=== PATIENT | female | born 1970 ===

== ENCOUNTER 2022-03-10 16:36 | Emergency (ER) | payer SELFPAY ==
[2022-03-10] MEDS ORDERED: SODIUM CHLORIDE 0.9% 1000 ML IV SOLN IV ONE (16:57)
[2022-03-10] MEDS ORDERED: ONDANSETRON 4 MG/2 ML INJ IV ONE (17:12)
[2022-03-10] MEDS ORDERED: ACETAMINOPHEN 500 MG TAB PO ONE (17:12)
[2022-03-10] MEDS ORDERED: levETIRAcetam 1000 MG/NS 0.75% 1,000 MG/100 ML BAG IV ONE (17:13)
--- NOTE | 2022-03-10 17:14 | Emergency Department Report ---
ED General Adult HPI - General Chief complaint: Weakness Stated complaint: VOMITING/CHILLS PUI?: Yes Time Seen by Provider: 03/10/22 16:58 Source: patient, family, RN notes reviewed Mode of arrival: Ambulatory Limitations: No Limitations, Physical Limitation - History of Present Illness Initial comments: The patient was evaluated in the emergency department for symptoms described in the history of present illness. He/she was evaluated in the context of the global COVID-19 pandemic, which necessitated consideration that the patient might be at risk for infection with the virus that causes COVID-19. Institutional protocols and algorithms that pertain to the evaluation of patients at risk for COVID-19 are in a state of rapid change based on information released by regulatory bodies including the CDC and federal and stat e organizations. These policies and algorithms were followed during the patient's care in the emergency department. Please note that these policies, procedures and recommendations changed on a rapid basis. 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 Please note that this patient is able to communicate with me in Latvian. In addition, this provider is conversant in Portuguese. This patient is a 51-year-old female with a history of hypothyroidism, seizures, currently takes Keppra, who received her COVID-19 vaccination, but not booster, presenting to the ER with a complaint of fever, chills, nausea, vomiting, di arrhea, malaise, weakness. She reportedly lost consciousness on Tuesday, and fell onto her left hand side. She thinks that she hit her head, but she is not certain. She did not seek medical attention at that time. She also endorses dysuria. No recent antibiotic use. -: Gradual, days(s) Location: head, back, abdomen, left Consistency: constant Improves with: rest Worsens with: movement - Related Data Allergies Allergy/AdvReac Type Severity Reaction Status Date / Time No Known Allergies Allergy Verified 03/10/22 16:49 ED Review of Systems ROS: Stated complaint: VOMITING/CHILLS Other details as noted in HPI Constitutional: fever, malaise, weakness ENT: denies: congestion Respiratory: denies: cough Cardiovascular: denies: chest pain Gastrointestinal: abdominal pain, nausea, vomiting, diarrhea Genitourinary: dysuria Musculoskeletal: back pain Neurological: headache, weakness ED Past Medical Hx - Past Medical History Previous Medical History?: No - Surgical History Past Surgical History?: No ED Physical Exam - General Limitations: Physical Limitation General appearance: alert, anxious, in distress - Head Head exam: Present: atraumatic, normocephalic - Eye Eye exam: Present: normal appearance, EOMI. Absent: nystagmus - ENT ENT exam: Present: normal orophraynx, mucous membranes dry, normal external ear exam - Neck Neck exam: Present: normal inspection, full ROM. Absent: tenderness, meningismus - Respiratory Respiratory exam: Present: other (Pulmonary auscultation not performed secondary to lack of disposable stethoscope). Absent: stridor - Cardiovascular Cardiovascular Exam: Present: normal rhythm, tachycardia, other (Tachycardic normal rhythm seen on monitoring manager. Auscultation not performed secondary to lack of disposable stethoscope) - GI/Abdominal GI/Abdominal exam: Present: soft, tenderness, other (There is left flank tenderness.). Absent: distended, guarding, rebound, rigid, pulsatile mass - Extremities Exam Extremities exam: Present: normal inspection, full ROM, other (2+ pulses noted in the bilateral upper and lower extremities. There is no palpable cord. negative Homans sign. Muscular compartments are soft. The pelvis is stable.). Absent: pedal edema, calf tenderness - Back Exam Back exam: Present: normal inspection, CVA tenderness (L). Absent: tenderness, CVA tenderness (R), paraspinal tenderness - Neurological Exam Neurological exam: Present: alert, other (There is no facial droop. The tongue is midline. EOMI. 5 out of 5 strength in 4 extremities. Sensation is intact to light touch in 4 extremities) - Psychiatric Psychiatric exam: Present: anxious - Skin Skin exam: Present: warm, dry, intact, normal color. Absent: rash ED Course Vital Signs 03/10/22 03/10/22 03/10/22 16:50 17:09 17:15 Temperature 102.7 F H Pulse Rate 140 H Respiratory 16 Rate Blood Pressure 114/61 Blood Pressure 100/48 [Left] O2 Sat by Pulse 95 99 97 Oximetry 03/10/22 03/10/22 03/10/22 17:31 17:45 17:57 Temperature 103.3 F H Pulse Rate 135 H 132 H 126 H Respiratory 31 H 35 H 26 H Rate Blood Pressure 104/60 104/60 92/58 Blood Pressure 92/58 [Left] O2 Sat by Pulse 97 95 97 Oximetry 03/10/22 03/10/22 03/10/22 18:01 18:13 18:15 Temperature 103.3 F H Pulse Rate 127 H 126 H 124 H Respiratory 30 H 28 H 29 H Rate Blood Pressure 99/55 92/58 Blood Pressure 92/58 [Left] O2 Sat by Pulse 96 97 96 Oximetry 03/10/22 03/10/22 03/10/22 18:31 18:45 19:01 Temperature Pulse Rate 124 H 124 H 120 H Respiratory 28 H 28 H 26 H Rate Blood Pressure 91/55 91/55 82/61 Blood Pressure [Left] O2 Sat by Pulse 97 97 97 Oximetry 03/10/22 03/10/22 19:15 22:19 Temperature Pulse Rate 122 H Respiratory 28 H Rate Blood Pressure 91/55 Blood Pressure [Left] O2 Sat by Pulse 96 98 Oximetry - Reevaluation(s) Reevaluation #1: 03/10/22 18:01 Differential diagnosis, including not limited to: Pneumonia, UTI, pyelonephritis, orthostasis, vagal event, dehydration, COVID-19, electrolyte derangement, closed head injury Assessment and plan: 51-year-old female, presenting with evidence of systemic inflammatory response syndrome, manifested by fever, tachycardia, dry mucous membranes, very suspicious for pyelonephritis, with probable dehydration, orthostasis. Place patient on isolation, start IV fluids, pain medication, Tylenol, EKG does not show STEMI, chest x-ray shows no pneumonia or pneumothorax, patient has left flank and left CVA tenderness in the context of infectious symptoms, as well as blunt trauma which occurred few days ago. Obtain noncontrast CT scan of the brain, CT scan of the abdomen pelvis, start ce ftriaxone, and reassess. I anticipate admitting this patient to the medical service for systemic inflammatory response syndrome/sepsis, likely secondary to pyelonephritis Reevaluation #2: 03/10/22 18:36 Patient has elevated lactic acid at 5, also metabolic acidosis, transaminitis, hypomagnesemia, and hypokalemia. Patient also has mild renal insufficiency. Patient meets criteria for admission hospitalization secondary to the aforementioned, in conjunction with systemic inflammatory response syndrome/sepsis picture. Currently awaiting results of CT scan brain, CT scan abdomen pelvis. Reevaluation #3: 03/10/22 18:42 Discussed laboratory findings with patient with her permission. She is agreeable to admission hospitalization. Heart rate 125 bpm. Blood pressure 95 systolic. Completing liter 1. Additional IV fluids ordered. TSH greater than 35. Free T4 ordered. Cover with hydrocortisone, and Synthroid. Additional IV fluids ordered. 03/10/22 20:23 CT scan brain shows no bleed. There is no facial bone tenderness. CT scan abdomen pelvis demonstrates left-sided obstructive renal stone, with hydronephrosis. There is no right upper quadrant tenderness. 03/10/22 20:48 This emergency room/hospital does not have neurology available for ER consultation. I did reach out to vascular surgery, and I discussed the patient' s history, physical, laboratory studies and imaging studies and clinical impression with vascular surgery/interventional radiology on-call, Dr. Garcia He recommends transfer given lack of urologic subspecialty services. I agree with this recommendation. Using travel registered nurse pacu, [phone], I extensive ly discussed with patient nature of her findings and diagnosis. Blood pressure is improved, 96/60 mmHg, hold off on vasopressors at this time. However, she does provide verbal informed consent for sterile central line placement, should blood pressure worsen. We will reach out to [facility] [place] to see about arranging transfer for definitive services not available at this facility. Using the aforementioned travel registered nurse pacu, discussed risks, benefits, potential side effects of sterile central line placement Reevaluation #4: 03/10/22 21:30 Blood pressure in the 80s. Decision made to go ahead with sterile central line placement. Risks, benefits alternatives discussed with patient using travel registered nurse pacu, and she provides consent for sterile central line placement. Sterile central line is placed, please see procedure note. Discussed the patient's history, physical, laboratory studies imaging studies and clinical impression with urology automobile service station mechanic for [facility] Dr Santos She advises that it is reasonable to have interventional radiology intervene on this patient, without urologic backup. She further advises that she cannot accept the transfer Have rediscussed with interventional radiology, Dr. Garcia. He recommends that we attempt to transfer the patient to an alternative facility. We will therefore discussed with [facility] 03/10/22 21:40 Patient now in respiratory distress. Has crackles and rales bilaterally. Chest x-ray with infiltrates/pulmonary edema. No pneumothorax appreciated. Discontinue additional IV fluids. Start high flow high humidity nasal cannula. Add on azithromycin. Hold off on nitrates and diuretics at this time, provide supportive care and positive pressure ventilation through high flow high humidity nasal cannula [facility] advises that the entire medical system is at capacity, and not able to accept any transfers. Have reached out to [facility], they advised that they are at capacity, and do not have ICU beds, and cannot accommodate the transfer. Awaiting callback from [facility] 03/10/22 21:45 [facility] advises that their system is only accepting trauma and bueno, and cannot assist in accepting this transfer will reach out to [facility] Heart rate 122 bpm, blood pressure 100/60 mmHg 03/10/22 22:42 Have discussed the patient's history, physical, laboratory studies and imaging studies and clinical impression with urology on-call for [facility], Dr. Carpenter. She advises that she can consult and follow this patient, but she cannot admit this patient. Have discussed the patient's history, physical, laboratory studies and imaging studies and clinical impression with critical care at [facility], Dr. Arreguin He advises that if they have critical care beds, they can accept as an ICU transfer. Currently awaiting callback from [facility] to confirm presence of bed availability. 03/10/22 22:50 Dr. Arreguin to accept to ICU at [facility]. This patient has an emergent medical condition which cannot be definitively managed at this hospital, as we do not have urology available for consultation. Patient prote cting airway and blood pressure is adequate at this time for transfer. I did advise the patient using the travel registered nurse pacu during her initial conversation that she would likely require transfer for services not available at this facility. - Central Line Placement Right IJ Consent Obtained: verbal consent, emergent situation Time Out Performed: Yes Patient Placed on Monitor/Pulse Ox: Yes MD Prep: mask, gown, gloves Central Line Prep: Povidone-Iodine 1%, Chlorhexidine scrub Local Anesthesia Used: Lidocaine 1% Amount of Anesthesia Used (mls): 8 Ultrasound Used for Placement: Yes Central Line Lumen Inserted: triple Reason for Insertion: High Alert Medication Bloods Obtained for Lab: No Central Line Position: all ports aspirated, flus, sutured in place with 2-0 Dressing Applied: Tegaderm Post Procedure X-Ray: tip of catheter in good p Patient Tolerated Procedure: well Complications: none Additional Comments: Patient prepped and draped in typical maximal sterile fashion. Using ultrasound guidance, right-sided internal jugular vein is cannulated with an 18-gauge needle, with 3 inch plastic catheter, guidewire, 0.032 x 60 cm, J-tip with a 3 mm radius is then inserted into the guiding catheter, and appropriate luminal placement is confirmed with real-time [id number] ultrasound guidance. A stab incision is made with an 11-gauge blade, and then incision is dilated. The 7 Kitt[place] triple-lumen catheter has each of the 3 ports flushed with sterile saline in advance of placement. Then, a 7 Kitt[place] triple-lumen catheter is i nserted over the guidewire, and sutured to the skin. Real-time ultrasound guidance confirms appropriate luminal placement. Ports are aspirated easily, and flushed easily. Blue Biopatch is then affixed to the skin, and Tegaderm is applied to the skin. This patient tolerated the procedure well, and without obvious complication. Blood loss estimated at less than 50 cc. ED Medical Decision Making - Lab Data Result diagrams: 03/10/22 17:32 03/10/22 17:32 Vital Signs 03/10/22 03/10/22 03/10/22 16:50 17:09 17:15 Temperature 102.7 F H Pulse Rate 140 H Respiratory 16 Rate Blood Pressure 114/61 Blood Pressure 100/48 [Left] O2 Sat by Pulse 95 99 97 Oximetry 03/10/22 17:31 Temperature Pulse Rate 135 H Respiratory 31 H Rate Blood Pressure 104/60 Blood Pressure [Left] O2 Sat by Pulse 97 Oximetry Lab Results 03/10/22 Range/Units Unknown Urine Color Niecy (Yellow) Urine Turbidity Cloudy (Clear) Urine pH 6.0 (5.0-7.0) Ur Specific [place] 1.015 (1.003-1.030) Urine Protein 100 mg/dl (Negative) mg/dL Urine Glucose (UA) Neg (Negative) mg/dL Urine Ketones Neg (Negative) mg/dL Urine Blood Lg (Negative) Urine Nitrite Pos (Negative) Urine Bilirubin Neg (Negative) Urine Urobilinogen < 2.0 (<2.0) mg/dL Ur Leukocyte Esterase Lg (Negative) Urine WBC (Auto) > 182.0 H (0.0-6.0) /HPF Urine RBC (Auto) 53.0 (0.0-6.0) /HPF U Epithel Cells (Auto) 19.0 H (0-13.0) /HPF Urine Bacteria (Auto) 1+ (Negative) /HPF Lab Results 03/10/22 03/10/22 03/10/22 Range/Units 17:32 17:32 17:32 RBC 3.86 (3.65-5.03) M/mm3 Hgb 9.3 L (10.1-14.3) gm/dl Hct 29.7 L (30.3-42.9) % MCV 77 L (79-97) fl MCH 24 L (28-32) pg MCHC 31 (30-34) % RDW 16.7 H (13.2-15.2) % Sodium 134 L (137-145) mmol/L Potassium 3.2 L (3.6-5.0) mmol/L Chloride 96.6 L (98-107) mmol/L Carbon Dioxide 16 L (22-30) mmol/L Anion Gap 25 mmol/L BUN 21 H (7-17) mg/dL Creatinine 1.4 H (0.6-1.2) mg/dL Estimated GFR 40 ml/min BUN/Creatinine Ratio 15 % Glucose 96 (65-100) mg/dL Lactic Acid 5.50 H* (0.7-2.0) mmol/L Calcium 9.0 (8.4-10.2) mg/dL Magnesium 1.60 L (1.7-2.3) mg/dL Total Bilirubin 1.40 H (0.1-1.2) mg/dL AST 65 H (5-40) units/L ALT 85 H (7-56) units/L Alkaline Phosphatase 559 H (35-129) units/L Total Creatine Kinase 77 (30-135) units/L Troponin T (0.00-0.029) ng/mL Total Protein 6.9 (6.3-8.2) g/dL Albumin 4.1 (3.9-5) g/dL Albumin/Globulin Ratio 1.5 % TSH (0.270-4.200) mlU/mL Urine Color (Yellow) Urine Turbidity (Clear) Urine pH (5.0-7.0) Ur Specific [place] (1.003-1.030) Urine Protein (Negative) mg/dL Urine Glucose (UA) (Negative) mg/dL Urine Ketones (Negative) mg/dL Urine Blood (Negative) Urine Nitrite (Negative) Urine Bilirubin (Negative) Urine Urobilinogen (<2.0) mg/dL Ur Leukocyte Esterase (Negative) Urine WBC (Auto) (0.0-6.0) /HPF Urine RBC (Auto) (0.0-6.0) /HPF U Epithel Cells (Auto) (0-13.0) /HPF Urine Bacteria (Auto) (Negative) /HPF Urine HCG, Qual (Negative) 03/10/22 03/10/22 03/10/22 Range/Units 17:32 17:32 Unknown RBC (3.65-5.03) M/mm3 Hgb (10.1-14.3) gm/dl Hct (30.3-42.9) % MCV (79-97) fl MCH (28-32) pg MCHC (30-34) % RDW (13.2-15.2) % Sodium (137-145) mmol/L Potassium (3.6-5.0) mmol/L Chloride (98-107) mmol/L Carbon Dioxide (22-30) mmol/L Anion Gap mmol/L BUN (7-17) mg/dL Creatinine (0.6-1.2) mg/dL Estimated GFR ml/min BUN/Creatinine Ratio % Glucose (65-100) mg/dL Lactic Acid (0.7-2.0) mmol/L Calcium (8.4-10.2) mg/dL Magnesium (1.7-2.3) mg/dL Total Bilirubin (0.1-1.2) mg/dL AST (5-40) units/L ALT (7-56) units/L Alkaline Phosphatase (35-129) units/L Total Creatine Kinase (30-135) units/L Troponin T < 0.010 (0.00-0.029) ng/mL Total Protein (6.3-8.2) g/dL Albumin (3.9-5) g/dL Albumin/Globulin Ratio % TSH 37.100 H (0.270-4.200) mlU/mL Urine Color [place] (Yellow) Urine Turbidity Cloudy (Clear) Urine pH 6.0 (5.0-7.0) Ur Specific [place] 1.015 (1.003-1.030) Urine Protein 100 mg/dl (Negative) mg/dL Urine Glucose (UA) Neg (Negative) mg/dL Urine Ketones Neg (Negative) mg/dL Urine Blood Lg (Negative) Urine Nitrite Pos (Negative) Urine Bilirubin Neg (Negative) Urine Urobilinogen < 2.0 (<2.0) mg/dL Ur Leukocyte Esterase Lg (Negative) Urine WBC (Auto) > 182.0 H (0.0-6.0) /HPF Urine RBC (Auto) 53.0 (0.0-6.0) /HPF U Epithel Cells (Auto) 19.0 H (0-13.0) /HPF Urine Bacteria (Auto) 1+ (Negative) /HPF Urine HCG, Qual (Negative) 03/10/22 Range/Units Unknown RBC (3.65-5.03) M/mm3 Hgb (10.1-14.3) gm/dl Hct (30.3-42.9) % MCV (79-97) fl MCH (28-32) pg MCHC (30-34) % RDW (13.2-15.2) % Sodium (137-145) mmol/L Potassium (3.6-5.0) mmol/L Chloride (98-107) mmol/L Carbon Dioxide (22-30) mmol/L Anion Gap mmol/L BUN (7-17) mg/dL Creatinine (0.6-1.2) mg/dL Estimated GFR ml/min BUN/Creatinine Ratio % Glucose (65-100) mg/dL Lactic Acid (0.7-2.0) mmol/L Calcium (8.4-10.2) mg/dL Magnesium (1.7-2.3) mg/dL Total Bilirubin (0.1-1.2) mg/dL AST (5-40) units/L ALT (7-56) units/L Alkaline Phosphatase (35-129) units/L Total Creatine Kinase (30-135) units/L Troponin T (0.00-0.029) ng/mL Total Protein (6.3-8.2) g/dL Albumin (3.9-5) g/dL Albumin/Globulin Ratio % TSH (0.270-4.200) mlU/mL Urine Color (Yellow) Urine Turbidity (Clear) Urine pH (5.0-7.0) Ur Specific [place] (1.003-1.030) Urine Protein (Negative) mg/dL Urine Glucose (UA) (Negative) mg/dL Urine Ketones (Negative) mg/dL Urine Blood (Negative) Urine Nitrite (Negative) Urine Bilirubin (Negative) Urine Urobilinogen (<2.0) mg/dL Ur Leukocyte Esterase (Negative) Urine WBC (Auto) (0.0-6.0) /HPF Urine RBC (Auto) (0.0-6.0) /HPF U Epithel Cells (Auto) (0-13.0) /HPF Urine Bacteria (Auto) (Negative) /HPF Urine HCG, Qual Negative (Negative) - EKG Data -: EKG Interpreted by Me EKG shows normal: sinus rhythm Rate: tachycardia - EKG Data When compared to previous EKG there are: previous EKG unavailable 03/10/22 17:57 The EKG is interpreted at 17: 22 Sinus rhythm, rate, 131 bpm. Tachycardia, normal axis, normal P wave axis, high left ventricular voltage, intervals within normal limits. This is not a STEMI. There is no prior EKG available for comparison. - Radiology Data Radiology results: pending, report reviewed, image reviewed CHEST 1 VIEW 03/10/2022 4:15 PM INDICATION / CLINICAL INFORMATION: fever. COMPARISON: None available. FINDINGS: SUPPORT DEVICES: None. HEART / MEDIASTINUM: No significant abnormality. LUNGS / PLEURA: No acute infiltrate. A somewhat nodular area seen along the inferior aspect of the right hilum me asuring approximately 1.2 cm. No pneumothorax. ADDITIONAL FINDINGS: No significant additional findings. IMPRESSION: 1. No acute infiltrate. 2. Somewhat nodular area along the inferior aspect of the right hilum. Follow-up PA and lateral chest is recommended. Signer Name: John Reed MD Signed: 03/10/2022 4:26 PM Workstation Name: [employer] CT ABDOMEN AND PELVIS WITH IV CONTRAST INDICATION: Left flank pain, nausea, vomiting, syncope. COMPARISON: None available. TECHNIQUE: Axial CT images were obtained through the abdomen and pelvis after 100 mL Omnipaque [address] scans at this location are performed using CT dose reduction for ALARA by means of automated exposure control. FINDINGS -- ABDOMEN: Lung Bases: No acute abnormality. Liver: Mild periportal edema. Gallbladder: Prominent edema along the gallbladder wall/gallbladder fossa. Bile Ducts: Normal. Pancreas: Normal. Spleen: Normal. Adrenals: Normal. Right Kidney and Proximal Ureter: Normal. Left Kidney and Proximal Ureter: Moderate left-sided hydronephrosis. There is a 8 mm calculus at the left ureteropelvic junction.. Stomach and Bowel: Normal. Lymph Nodes: No significant adenopathy. Aorta: No significant abnormality. IVC: Normal. Additional Findings: None. FINDINGS -- PELVIS: Urinary Bladder and Distal Ureters: Normal. Reproductive Organs: No acute abnormality. Appendix: Normal. Bowel: No acute abnormality. Free Fluid: None. Lymph Nodes: No significant adenopathy. Additional Findings: None. Skeletal System: No acute abnormality. IMPRESSION: 1. Moderate left hydronephrosis secondary to an obstructive 8 mm calculus at the left ureteropelvic junction. 2. Nonspecific periportal edema, as above. Edema is also noted along the gallbladder fossa, as outlined above. Signer Name: Marcellus Ruiz MD Signed: 03/10/2022 6:55 PM Workstation Name: [id number] CT head/brain wo con INDICATION / CLINICAL INFORMATION: 51 years Female; syncope closed head injury. TECHNIQUE: Routine CT head without contrast. All CT scans at this location are performed using CT dose reduction for ALARA by means of automated exposure control. COMPARISON: The study is compared to previous CT of 05/14/2017. FINDINGS: BRAIN / INTRACRANIAL CONTENTS: The motion degrades the image quality. However, there appear to be a subtle areas of decreased attenuation involving frontal subcortical white matter which are nonspecific though may reflect microvascular angiopathy. The findings at may be exacerbated by the degree of motion though appears to progressed from the previous CT of 05/14/2017. The ventricular system is within normal limits in size and configuration. There is continued relative prominence of the CSF attenuation along the anterior left temporal lobe indicative of incidental arachnoid cyst. There is no clear CT evidence of acute intracranial hemorrhage. ORBITS: No significant abnormality o f visualized orbits. SINUSES / MASTOIDS: No significant abnormality in the visualized paranasal sinuses or mastoid air cells. CRANIOCERVICAL JUNCTION: No significant abnormality. ADDITIONAL FINDINGS: There are multiple scattered foci of free air seen within the included pterygoid fossa and superficial temporal regions as well as just inferior to the foramen magnum and within the included transverse foramen which are of unclear etiology and correlation would be needed in this patient with history of trauma. The visualized paranasal sinuses and mastoid air cells are pneumatized. Foci of air are also seen along the cavernous sinus and into the left orbital apex and correlation be needed regarding intravascular access. IMPRESSION: 1. The motion degrades image quality. However, there appear to be mild cerebral white matter changes as detailed above without clear CT evidence of acute intracranial hemorrhage. 2. There are numerous scattered foci of air including along the cavernous sinus, near the left orbital apex and along the pterygoid fossa and superficial temporal regions bilaterally and correlation be needed in this patient with given history of trauma. Signer Name: Mario Powell MD Signed: 03/10/2022 6:57 PM Workstation Name: [id number] [facility] [address] [place] [address] XRay Report Signed Patient: ARIADNA MART MR#: [id number] : 1970 Acct:[id number] Age/Sex: 51 / F ADM Date: 03/10/22 Loc: ED Attending Dr: Ordering Physician: MARIO PRYOR MD Date of Service: 03/10/22 Procedure(s): XR chest 1V ap Accession Number(s): [id number] cc: MARIO PRYOR MD Fluoro Time In Minutes: XR chest 1V ap INDICATION / CLINICAL INFORMATION: s/p central line placement. COMPARISON: Radiograph from earlier same day. FINDINGS: SUPPORT DEVICES: Right IJ central venous catheter projects over the SVC. HEART /PULMONARY VASCULATURE: Unchanged. LUNGS / PLEURA: Worsening bibasilar mixed interstitial airspace opacities. No sizable pleural effusion. No pneumothorax. IMPRESSION: 1. Right IJ central venous catheter projects over the SVC. 2. Worsening bibasilar pulmonary opacities, most likely reflecting pulmonary edema. Signer Name: Chicho Gonzalez MD Signed: 03/10/2022 9:47 PM Workstation Name: [id number] Transcribed By: ADRIA Dictated By: CHICHO GONZALEZ MD Electronically Authenticated By: CHICHO GONZALEZ MD Signed Date/Time: 03/10/222146 DD/ 44 Critical Care Time: Yes Critical care time in (mins) excluding proc time.: 180 Critical care attestation.: If time is entered above; I have spent that time in minutes in the direct care of this critically ill patient, excluding procedure time. ED Disposition Clinical Impression: Syncope, Pyelonephritis, Sepsis, Left flank pain, Hypomagnesemia, Hypokalemia, Acute renal insufficiency, Transaminitis, Hydronephrosis with renal calculous obstruction Disposition: 09 ADMITTED INPATIENT Is pt being admited?: Yes Does the pt Need Aspirin: No Condition: Serious Instructions: Syncope (ED) Referrals: PRIMARY CARE, [Primary Care Provider] - 3-5 Days
--- NOTE | 2022-03-10 17:31 | XRay Report ---
CHEST 1 VIEW 03/10/2022 4:15 PM INDICATION / CLINICAL INFORMATION: fever. COMPARISON: None available. FINDINGS: SUPPORT DEVICES: None. HEART / MEDIASTINUM: No significant abnormality. LUNGS / PLEURA: No acute infiltrate. A somewhat nodular area seen along the inferior aspect of the ri ght hilum measuring approximately 1.2 cm. No pneumothorax. ADDITIONAL FINDINGS: No significant additional findings. IMPRESSION: 1. No acute infiltrate. 2. Somewhat nodular area along the inferior aspect of the right hilum. Follow-up PA and lateral chest is recommended. Signer Name: John Reed MD Signed: 03/10/2022 5:26 PM Workstation Name: [id number]
[2022-03-10 17:38] LABS: Bacteria,Urine 1+ /HPF (Negative); Bilirubin,Urine NEG (Negative); Blood,Urine LG (Negative); Color,Urine Amber (Yellow); Urobilinogen,Urine < 2.0 mg/dL (<2.0)
[2022-03-10 17:39] LABS: WBC,Urine > 182.0 /HPF (0.0-6.0)
[2022-03-10] MEDS ORDERED: cefTRIAXone/NS 2 GM/100 ML 2 GM/100 ML BAG IV ONE (17:55)
[2022-03-10 17:56] LABS: Hematocrit 29.7 % (30.3-42.9); Hemoglobin 9.3 gm/dl (10.1-14.3); Mean Corpuscular HGB Conc 31 % (30-34); Mean Corpuscular Volume 77 fl (79-97); Red Blood Count 3.86 M/mm3 (3.65-5.03); Red Cell Distribution Width 16.7 % (13.2-15.2)
[2022-03-10 18:12] LABS: Albumin 4.1 g/dL (3.9-5)
[2022-03-10 18:29] LABS: HCG Qualitative,Urine Negative (Negative)
[2022-03-10] MEDS ORDERED: POTASSIUM CHLORIDE ER 20 MEQ TAB PO ONE (18:35)
[2022-03-10] MEDS ORDERED: MAGNESIUM OXIDE 400 MG TAB PO STA (18:35)
[2022-03-10] MEDS ORDERED: HYDROCORTISONE SOD SUCC 100 MG/2 ML VIAL IV ONE (18:41)
[2022-03-10] MEDS ORDERED: LEVOTHYROXINE 100 MCG INJ IV STA (18:41)
[2022-03-10] MEDS ORDERED: SODIUM CHLORIDE 0.9% 1000 ML 2,000 ML IV ONE ×2 (18:42→20:47)
[2022-03-10 18:51] LABS: Basophils % (Manual) 0 % (0.0-1.8); Total Cells Counted 100
[2022-03-10 18:52] LABS: Anisocytosis 1+; Band Neutrophils # (Manual) 0.1 K/mm3; Hypochromasia 1+; Platelet Clumps Rare; Platelet Estimate Consistent w Auto
[2022-03-10 18:53] LABS: Platelet Count 104 K/mm3 (140-440)
--- NOTE | 2022-03-10 20:00 | Cat Scan Report ---
CT ABDOMEN AND PELVIS WITH IV CONTRAST INDICATION: Left flank pain, nausea, vomiting, syncope. COMPARISON: None available. TECHNIQUE: Axial CT images were obtained through the abdomen and pelvis after 100 mL Omnipaque [address] scans at this location are performed using CT dose reduction for ALARA by means of automated e xposure control. FINDINGS -- ABDOMEN: Lung Bases: No acute abnormality. Liver: Mild periportal edema. Gallbladder: Prominent edema along the gallbladder wall/gallbladder fossa. Bile Ducts: Normal. Pancreas: Normal. Spleen: Normal. Adrenals: Normal. Right Kidney and Proximal Ureter: Normal. Left Kidney and Proximal Ureter: Moderate left-sided hydronephrosis. There is a 8 mm calculus at the left ureteropelvic junction.. Stomach and Bowel: Normal. Lymph Nodes: No significant adenopathy. Aorta: No significant abnormality. IVC: Normal. Additional Findings: None. FINDINGS -- PELVIS: Urinary Bladder and Distal Ureters: Normal. Reproductive Organs: No acute abnormality. Appendix: Normal. Bowel: No acute abnormality. Free Fluid: None. Lymph Nodes: No significant adenopathy. Additional Findings: None. Skeletal System: No acute abnormality. IMPRESSION: 1. Moderate left hydronephrosis secondary to an obstructive 8 mm calculus at the left ureteropelvic j unction. 2. Nonspecific periportal edema, as above. Edema is also noted along the gallbladder fossa, as outlin ed above. Signer Name: Marcellus Ruiz MD Signed: 03/10/2022 7:55 PM Workstation Name: [id number]
--- NOTE | 2022-03-10 20:01 | Cat Scan Report ---
CT head/brain wo con INDICATION / CLINICAL INFORMATION: 51 years Female; syncope closed head injury. TECHNIQUE: Routine CT head without contrast. All CT scans at this location are performed using CT dos e reduction for ALARA by means of automated exposure control. COMPARISON: The study is compared to previous CT of 05/14/2017. FINDINGS: BRAIN / INTRACRANIAL CONTENTS: The motion degrades the image quality. However, there appear to be a s ubtle areas of decreased attenuation involving frontal subcortical white matter which are nonspecific though may reflect microvascular angiopathy. The findings at may be exacerbated by the degree of mot ion though appears to progressed from the previous CT of 05/14/2017. The ventricular system is within normal limits in size and configuration. There is continued relative prominence of the CSF attenuation along the anterior left temporal lobe indicative of incidental flor chnoid cyst. There is no clear CT evidence of acute intracranial hemorrhage. ORBITS: No significant abnormality of visualized orbits. SINUSES / MASTOIDS: No significant abnormality in the visualized paranasal sinuses or mastoid air del ls. CRANIOCERVICAL JUNCTION: No significant abnormality. ADDITIONAL FINDINGS: There are multiple scattered foci of free air seen within the included pterygoid fossa and superficial temporal regions as well as just inferior to the foramen magnum and within the included transverse foramen which are of unclear etiology and correlation would be needed in this pa tient with history of trauma. The visualized paranasal sinuses and mastoid air cells are pneumatized. Foci of air are also seen along the cavernous sinus and into the left orbital apex and correlation b e needed regarding intravascular access. IMPRESSION: 1. The motion degrades image quality. However, there appear to be mild cerebral white matter changes as detailed above without clear CT evidence of acute intracranial hemorrhage. 2. There are numerous scattered foci of air including along the cavernous sinus, near the left orbita l apex and along the pterygoid fossa and superficial temporal regions bilaterally and correlation be needed in this patient with given history of trauma. Signer Name: Mario Powell MD Signed: 03/10/2022 7:57 PM Workstation Name: [id number]
[2022-03-10] MEDS ORDERED: LIDOCAINE (1%) 10 MG/1 ML VIAL 20 ML MDV INFILTRATI ONE (20:28)
[2022-03-10] MEDS ORDERED: MORPHINE 4 MG/1 ML INJ IV ONE (20:47)
[2022-03-10] MEDS ORDERED: NORepinephrine/NS 8 MG-250 ML 8 MG/250 ML INFUS..BTL IV SCH (21:00)
--- NOTE | 2022-03-10 21:02 | Event Note ---
Date: 03/10/22 Contacted about 51 year old septic patient with obstructing left ureteral calculi with hydronephrosis. Urology not on ER scheduled tonight. Given lack of urology coverage, recommend transfer for septic obstructing calculi.
[2022-03-10] MEDS ORDERED: AZITHROMYCIN/NS 500 MG/250 ML 500 MG/250 ML BAG IV ONE (21:38)
--- NOTE | 2022-03-10 21:51 | XRay Report ---
XR chest 1V ap INDICATION / CLINICAL INFORMATION: s/p central line placement. COMPARISON: Radiograph from earlier same day. FINDINGS: SUPPORT DEVICES: Right IJ central venous catheter projects over the SVC. HEART /PULMONARY VASCULATURE: Unchanged. LUNGS / PLEURA: Worsening bibasilar mixed interstitial airspace opacities. No sizable pleural effusio n. No pneumothorax. IMPRESSION: 1. Right IJ central venous catheter projects over the SVC. 2. Worsening bibasilar pulmonary opacities, most likely reflecting pulmonary edema. Signer Name: Sergey Pedersen MD Signed: 03/10/2022 9:47 PM Workstation Name: [id number]
[2022-03-11] MEDS ORDERED: AZITHROMYCIN/NS 500 MG/250 ML 500 MG/250 ML BAG IV ONE (01:14)
[2022-03-11 02:24] VITALS: BP 94/60
--- NOTE | 2022-03-12 10:18 | Electrocardiograph Report ---
[facility] Test Date: 2022-03-10 Test Time: 17:22:21 Pat Name: ARIADNA MART Department: Room: Gender: F Setup Operator: ENRIQUE : 1970 Requested By: JULIO PRYOR Order Number: [id number] Reading MD: Binu Medina Measurements Intervals [place] Rate: 131 P: 62 ID: [id number] QRS: 55 QRSD: 83 T: 45 QT: 288 QTc: 426 Interpretive Statements Sinus tachycardia [id number] No previous ECG available for comparison Electronically Signed On 03-12-2022 10:17:35 EDT by Binu Medina
== END 2022-03-11 02:24 | disposition short-term general hospital (02) ==
LOC: ED 16:36
DX: A41.9 Sepsis, unspecified organism (principal); N28.9 Disorder of kidney and ureter, unspecified; N13.2 Hydronephrosis with renal and ureteral calculous obstruction; N12 Tubulo-interstitial nephritis, not specified as acute or chronic; E83.42 Hypomagnesemia; E87.6 Hypokalemia; R74.01 Elevation of levels of liver transaminase levels; R55 Syncope and collapse; Z79.899 Other long term (current) drug therapy
CPT/HCPCS: 36415; 36556; 70450; 71045; 74177; 80053; 81001; 81025; 82140; 82550; 83735; 84439; 84443; 84484; 85007; 85025; 87040; 87076; 87186; 93005; 96365; 96367; 96368; 96375; 99291; 99292; J0456; J0696; J1720; J1953; J2405; J3490; J7030; Q9967; 99285